=== PATIENT | female | born 1985 | race Caucasian/White ===

== ENCOUNTER 2018-02-13 13:16 | Emergency (ER) | payer MEDICAID ==
[2018-02-13 14:20] LABS: ADD UMIC YES; UR ASCORBIC ACID 20 mg/dL (NEGATIVE); UR BACTERIA FEW /HPF (NONE SEEN); UR BILIRUBIN (Dip) NEGATIVE (NEGATIVE); UR BLOOD (Dip) 1+ mg/dL (NEGATIVE); UR CLARITY CLEAR (CLEAR); UR COLOR YELLOW (YELLOW); UR GLUCOSE (Dip) NEGATIVE (NEGATIVE); UR KETONES (Dip) NEGATIVE (NEGATIVE); UR LEUKOCYTE ESTERASE (Dip) 1+ Leu/ul (NEGATIVE); UR MUCUS FEW /HPF (NONE SEEN); UR NITRITE (Dip) NEGATIVE (NEGATIVE); UR NONSQUAMOUS EPITHELIAL CELL 1 /HPF (NONE SEEN); UR RBC 6 /HPF (0-5); UR SPECIFIC GRAVITY (Dip) 1.024 (1.003-1.030); UR SQUAMOUS EPITHELIAL CELL FEW /HPF (FEW); UR TOTAL PROTEIN (Dip) NEGATIVE (NEGATIVE); UR UROBILINOGEN (Dip) NEGATIVE (NEGATIVE); UR WBC 23 /HPF (0-5)
[2018-02-13] MEDS: IBUPROFEN 600 MG TAB PO (14:43)
[2018-02-13] MEDS: CEPHALEXIN 500 MG CAP PO (14:43)
[2018-02-13] MEDS: PHENAZOPYRIDINE 100 MG TAB PO (14:44)
== END 2018-02-13 15:13 | disposition home or self-care (01) ==
LOC: FTE 13:16
DX: R10.2 Pelvic and perineal pain (principal)
CPT/HCPCS: 81001; 84703; 87591; 99284

== ENCOUNTER 2018-06-19 17:14 | Emergency (ER) | payer MEDICAID ==
[2018-06-19 18:52] LABS: URINE BLOOD (Dip) POC Negative (NEGATIVE); URINE GLUCOSE (Dip) POC Negative (NEGATIVE); URINE KETONES (Dip) POC Trace (NEGATIVE); URINE LEUKOCYTE EST (Dip) POC Negative (NEGATIVE); URINE NITRITE (Dip) POC Negative (NEGATIVE); URINE TOTAL PROTEIN POC 1+ (NEGATIVE)
[2018-06-19 18:52] LABS: URINE PH (Dip) POC 5.5 (5.0-8.5)
== END 2018-06-19 19:24 | disposition home or self-care (01) ==
LOC: FTE 17:14
DX: M54.5 Low back pain (principal); R30.0 Dysuria
CPT/HCPCS: 81003; 81025; 99283

== ENCOUNTER 2018-10-07 14:07 | Emergency (ER) | payer MEDICAID ==
[2018-10-07] MEDS: ACETAMINOPHEN 325 MG TAB PO (15:46)
[2018-10-07] MEDS: KETOROLAC 30 MG INJ IM (15:46)
== END 2018-10-07 17:07 | disposition home or self-care (01) ==
LOC: FTE 14:07
DX: S13.9XXA Sprain of joints and ligaments of unspecified parts of neck, initial encounter (principal); X50.0XXA Overexertion from strenuous movement or load, initial encounter; Y92.9 Unspecified place or not applicable
CPT/HCPCS: 72040; 72125; 81025; 96372; 99285-25